=== PATIENT | female | born 1955 | race Caucasian/White ===

== ENCOUNTER → 2016-06-28 | Outpatient (CLI) | payer OTHER ==
--- NOTE | 2016-06-28 14:08 | OP ---
DATE OF PROCEDURE: 06/28/16 PREOPERATIVE DIAGNOSIS: 1. Abnormal mammogram with a mass at 12 oclock position, left breast. POSTOPERATIVE DIAGNOSIS: 1. Abnormal mammogram with a mass at 12 oclock position, left breast. PROCEDURE: 1. Sonographically guided needle core biopsy, left breast mass. SURGEON: Diego Wells MD. NANOTECHNOLOGY ENGINEERING TECHNICIAN: None. ANESTHESIA: Local infiltration of 1% lidocaine. INDICATION: The patient is a 60-year-old female who on mammography was found to have a solid mass at the 12 oclock position in the left breast just under 2 cm. She was brought to the ultrasound suite for sonographically guided biopsy. FINDINGS: Several good cores were taken with the ultrasound revealing the needle within the mass. PROCEDURE: The patient was brought to the ultrasound suite. The lesion was identified in the breast lateral to the mass and ultrasound probe were prepped with Betadine paint and draped. Local infiltration of anesthesia was obtained with 1% lidocaine in the area between skin stab wound and the mass were infiltrated with local anesthetic. At this point, the stab wound was made with a #15 blade and then the needle core biopsy device was advanced under ultrasound guidance in multiple passes for specimen. Hemostasis was obtained with pressure. Skin edges were approximated with a single suture of 4-0 Ethilon. Sterile pressure dressings were applied. The specimens were sent for pathological evaluation. The patient tolerated the procedure well. Estimated blood loss was nil. #[id number] [facility]
--- NOTE | 2016-06-29 20:00 | US ---
EXAM DESCRIPTION: US GUIDANCE FOR NEEDLE PLACEMENT CLINICAL HISTORY: 60 y/o ,F, INCONCLUSIVE MAMMOGRAM COMPARISON: Diagnostic evaluation. 03/28/2016 IMPRESSION: Several static ultrasound images are submitted. The images demonstrate the needle traversing the nodule of interest in the left breast at 12 o'clock. No sonographic complication. Pathology results are currently pending Electronically signed by: Carol Salter 06/29/2016 19:59
== END | disposition home or self-care (01) ==
LOC: US 07:48
PROVIDERS: ATTEND Surgery
PROC: 0HBU3ZX Excision of Left Breast, Percutaneous Approach, Diagnostic (ICD-10-PCS; principal; 2016-06-28)
DX: R92.8 Other abnormal and inconclusive findings on diagnostic imaging of breast (principal)

== ENCOUNTER 2016-07-03 14:25 | Emergency (ER) | payer OTHER ==
[2016-07-03 16:07] VITALS: BP 157/102; TEMP 99.6; O2SAT 97
[2016-07-03] MEDS ORDERED: predniSONE 20 MG TAB PO ONE (16:23)
--- NOTE | 2016-07-03 16:23 | ED.PDOC ---
History of Present Illness - General Chief Complaint: General Stated Complaint: nasal congestion, sore throat Time Seen by Provider: 07/03/16 14:47 Source: patient Exam Limitations: no limitations - History of Present Illness Initial Comments: The patient is a 60-year-old female presenting to the emergency room secondary to cough along with mild sore throat and runny nose for the last week. She has had some increased pressure in her years. No real shortness of breath. She has had some increase in her wheezing. She does have COPD and does still smoke. No definite fevers. No shortness of breath. No palpitations. No chest pain. No rash. Her relative lives with her has similar symptoms. Timing/Duration: 1 week Severity: mild Improving Factors: nothing Worsening Factors: nothing Associated Symptoms: cough, fever/chills, malaise Allergies/Adverse Reactions: Allergies Sulfamethoxazole w/Trimethoprim [From Bactrim] Allergy (Verified 07/03/16 16:02) Home Medications: Ambulatory Orders Lisinopril & Hydrochlorothiazi [Lisinopril/Hctz 20-12.5 mg] 1 tab PO QAM #30 tab 02/27/15 Metformin HCl [Glucophage] 500 mg PO BID 02/27/15 Albuterol Inhaler [Ventolin Hfa Inhaler] 2 puff INH Q4H PRN 07/03/16 Meloxicam [Mobic] 7.5 mg PO BID 07/03/16 Omeprazole 20 mg PO DAILY 07/03/16 QUEtiapine FUMARATE [SEROquel] 50 mg PO BEDTIME 07/03/16 Review of Systems - Review of Systems Constitutional: States: malaise EENTM: States: nose congestion, throat pain Respiratory: States: cough, wheezing Cardiology: States: no symptoms reported Gastrointestinal/Abdominal: States: no symptoms reported Genitourinary: States: no symptoms reported Musculoskeletal: States: no symptoms reported Skin: States: no symptoms reported Neurological: States: no symptoms reported Endocrine: States: no symptoms reported All other Systems: No Change from Baseline Past Medical History (General) - Patient Medical History Hx Stroke: No Hx of COPD: Yes Hx Cardiac Disorders: Yes Hx Congestive Heart Failure: Yes Hx Hypertension: Yes Hx Diabetes: Yes Hx Gastroesophageal Reflux: Yes Hx MRSA: No Surgical History: tonsillectomy - Vaccination History Hx Influenza Vaccination: No Hx Pneumococcal Vaccination: No - Social History Hx Tobacco Use: Yes Hx Depression: Yes Family Medical History - Family History Mother Family History: Unknown Living Status: Unknown Father Living Status: Hx Family Hypertension: Yes Hx Family Diabetes: Yes Physical Exam - Physical Exam General Appearance: Alert, Comfortable, No apparent distress Eye Exam: bilateral normal Ears, Nose, Throat: hearing grossly normal, nasal congestion, pharyngeal erythema Neck: non-tender, full range of motion, supple Respiratory: chest non-tender, no respiratory distress, no accessory muscle use , wheezing - mild and scattered Cardiovascular/Chest: normal peripheral pulses, regular rate, rhythm, no edema Peripheral Pulses: radial,right: 2+, radial,left: 2+ Gastrointestinal/Abdominal: normal bowel sounds, non tender, soft Rectal Exam: deferred Back Exam: normal inspection Extremity: normal range of motion, non-tender, normal inspection, no pedal edema , normal capillary refill Neurologic: alert, normal mood/affect, oriented x 3 Skin Exam: normal color Comments: Vital Signs - 24 hr 07/03/16 16:02 Temperature 99.6 F Pulse Rate [ 84 Left Radial] Respiratory 20 Rate Blood Pressure 157/102 [Left Arm] O2 Sat by Pulse 97 Oximetry Progress - Progress Progress: 07/03/16 16:24 the patient is a 60-year-old female with a viral respiratory tract infection. This has triggered a mild COPD exacerbation. She is receiving 1 dose of oral prednisone here today. She needs to stop smoking. She needs to continue her breathing treatments. Motrin and Tylenol can help reduce discomfort. She needs to keep well-hydrated. She can additionally take over- the-counter Zyrtec once daily for the runny nose if she desires. She needs to follow up with her primary care doctor before the weekend. she needs to return to the emergency room for any acute worsening. - Results/Orders Results/Orders: Rapid flu and rapid strep were negative. Departure - Departure Clinical Impression: Viral syndrome, COPD exacerbation Disposition: Discharge to Home or Self Care Condition: Fair Departure Forms: ED Discharge - Pt. Copy, Patient Portal Self Enrollment Instructions: DI for Viral Upper Respiratory Infection -- Adult, DI for Chronic Obstructive Pulmonary Disease Diet: regular diet Activity: increase activity as tolerated Referrals: Yesica Lizama NP [Primary Care Provider] - 1-2 Weeks Home Medications: Ambulatory Orders Lisinopril & Hydrochlorothiazi [Lisinopril/Hctz 20-12.5 mg] 1 tab PO QAM #30 tab 02/27/15 Metformin HCl [Glucophage] 500 mg PO BID 02/27/15 Albuterol Inhaler [Ventolin Hfa Inhaler] 2 puff INH Q4H PRN 07/03/16 Meloxicam [Mobic] 7.5 mg PO BID 07/03/16 Omeprazole 20 mg PO DAILY 07/03/16 QUEtiapine FUMARATE [SEROquel] 50 mg PO BEDTIME 07/03/16 Additional Instructions: the patient is a 60-year-old female with a viral respiratory tract infection. This has triggered a mild COPD exacerbation. She is receiving 1 dose of oral prednisone here today. She needs to stop smoking. She needs to continue her breathing treatments. Motrin and Tylenol can help reduce discomfort. She needs to keep well-hydrated. She can additionally take over- the-counter Zyrtec once daily for the runny nose if she desires. She needs to follow up with her primary care doctor before the weekend. she needs to return to the emergency room for any acute worsening.
== END 2016-07-03 16:54 | disposition home or self-care (01) ==
LOC: ER 14:25
DX: J44.1 Chronic obstructive pulmonary disease with (acute) exacerbation (principal); B34.9 Viral infection, unspecified; F17.200 Nicotine dependence, unspecified, uncomplicated; I11.0 Hypertensive heart disease with heart failure; I50.9 Heart failure, unspecified; K21.9 Gastro-esophageal reflux disease without esophagitis; E11.9 Type 2 diabetes mellitus without complications; Z79.899 Other long term (current) drug therapy; Z88.2 Allergy status to sulfonamides

== ENCOUNTER → 2016-12-25 | Outpatient (CLI) | payer OTHER ==
--- NOTE | 2016-12-26 09:13 | RAD ---
EXAM DESCRIPTION: Cervical Spine,3 Views CLINICAL HISTORY: 61 years, Female, DISC DEGENERATION COMPARISON: FINDINGS: Normal vertebral body height. Straightening. Moderate narrowing C5-6 with anterior posterior spurs. Slight narrowing C6-7 with similar spurring. IMPRESSION: Muscular spasm and mild cervical spondylosis particularly C5-6 and to lesser degree C6-7 Electronically signed by: Pablo Troncoso MD 12/26/2016 9:12 AM CDT
--- NOTE | 2016-12-26 09:14 | RAD ---
EXAM DESCRIPTION: Lumbar Spine 3 Views CLINICAL HISTORY: 61 years, Female, DISC DEGENERATION COMPARISON: FINDINGS: Normal vertebral body height. Moderate narrowing L4-5 with spurring. Other disc spaces fairly well maintained. Minimal mid right lumbar curvature probably degenerative. IMPRESSION: Mild degenerative disc disease at L4-5. No acute bony injury Electronically signed by: Pablo Troncoso MD 12/26/2016 9:13 AM CDT
== END | disposition home or self-care (01) ==
LOC: YCFC.O 12:44
PROVIDERS: ATTEND Nurse Practitioner Family
DX: E78.5 Hyperlipidemia, unspecified (principal); E11.9 Type 2 diabetes mellitus without complications; I10 Essential (primary) hypertension; Z13.9 Encounter for screening, unspecified; M50.30 Other cervical disc degeneration, unspecified cervical region; M51.36 Other intervertebral disc degeneration, lumbar region

== ENCOUNTER → 2017-01-01 | Outpatient (CLI) | payer OTHER | LOC: RESP 10:30 | PROVIDERS: ATTEND Nurse Practitioner Family | DX: R10.13 Epigastric pain (principal) ==

== ENCOUNTER 2018-01-18 21:17 | Emergency (ER) | payer OTHER ==
--- NOTE | 2018-01-18 21:47 | ED.PDOC ---
History of Present Illness - General Chief Complaint: Cardiovascular Problem Stated Complaint: bilateral lower extremity swelling Time Seen by Provider: 01/18/18 21:43 Source: patient Exam Limitations: no limitations - History of Present Illness Initial Comments: Patient presents with bipedal edema that has been increasing for a few days. She normally takes HCTZ for it but she ran out. She went to an urgent care today because she thought that her doctor was there but he wasn't. She is requesting a temporary refill until she can get to him this week. She has had the edema many times before. Denies chest pain or dyspnea. Does smoke cigarrettes. No other complaints. Timing/Duration: other - several days Severity: moderate Improving Factors: nothing, eating Associated Symptoms: denies symptoms Allergies/Adverse Reactions: Allergies Sulfamethoxazole w/Trimethoprim [From Bactrim] Allergy (Verified 07/03/16 16:02) Home Medications: Ambulatory Orders Lisinopril & Hydrochlorothiazi [Lisinopril/Hctz 20-12.5 mg] 1 tab PO QAM #30 tab 02/27/15 Metformin HCl [Glucophage] 500 mg PO BID 02/27/15 Albuterol Inhaler [Ventolin Hfa Inhaler] 2 puff INH Q4H PRN 07/03/16 Meloxicam [Mobic] 7.5 mg PO BID 07/03/16 Omeprazole 20 mg PO DAILY 07/03/16 QUEtiapine FUMARATE [SEROquel] 50 mg PO BEDTIME 07/03/16 Lisinopril & Hydrochlorothiazi [Lisinopril/Hctz 20-12.5 mg] 1 tab PO QAM #7 tab 01/18/18 Metformin HCl 500 mg PO BID #14 tab 01/18/18 Review of Systems - Review of Systems Constitutional: States: no symptoms reported EENTM: States: no symptoms reported Respiratory: States: no symptoms reported Cardiology: States: edema Gastrointestinal/Abdominal: States: no symptoms reported Genitourinary: States: no symptoms reported Musculoskeletal: States: no symptoms reported Skin: States: no symptoms reported Neurological: States: no symptoms reported Endocrine: States: no symptoms reported Hematologic/Lymphatic: States: no symptoms reported Past Medical History (General) - Patient Medical History Hx Stroke: No Hx of COPD: Yes Hx Cardiac Disorders: Yes Hx Congestive Heart Failure: Yes Hx Hypertension: Yes Hx Diabetes: Yes Hx Gastroesophageal Reflux: Yes Hx MRSA: No - Vaccination History Hx Influenza Vaccination: No Hx Pneumococcal Vaccination: No - Social History Hx Tobacco Use: Yes Hx Depression: Yes Family Medical History - Family History Mother Family History: Unknown Living Status: Unknown Father Living Status: Hx Family Hypertension: Yes Hx Family Diabetes: Yes Physical Exam - Physical Exam General Appearance: Alert Respiratory: lungs clear, normal breath sounds, no respiratory distress Cardiovascular/Chest: normal peripheral pulses, regular rate, rhythm, other - 2 + non-pitting bipedal edema to mid tibia Gastrointestinal/Abdominal: normal bowel sounds, non tender, soft Departure - Departure Clinical Impression: Edema, Tobacco abuse counseling Disposition: Discharge to Home or Self Care Condition: Good Departure Forms: ED Discharge - Pt. Copy, Patient Portal Self Enrollment Diet: other - as instructed by your physician Activity: increase activity as tolerated Referrals: ALFREDO YEN [Primary Care Provider] - 1-2 Weeks Prescriptions: Lisinopril & Hydrochlorothiazi [Lisinopril/Hctz 20-12.5 mg] 1 tab PO QAM #7 tab Metformin HCl 500 mg PO BID #14 tab Home Medications: Ambulatory Orders Lisinopril & Hydrochlorothiazi [Lisinopril/Hctz 20-12.5 mg] 1 tab PO QAM #30 tab 02/27/15 Metformin HCl [Glucophage] 500 mg PO BID 02/27/15 Albuterol Inhaler [Ventolin Hfa Inhaler] 2 puff INH Q4H PRN 07/03/16 Meloxicam [Mobic] 7.5 mg PO BID 07/03/16 Omeprazole 20 mg PO DAILY 07/03/16 QUEtiapine FUMARATE [SEROquel] 50 mg PO BEDTIME 07/03/16 Lisinopril & Hydrochlorothiazi [Lisinopril/Hctz 20-12.5 mg] 1 tab PO QAM #7 tab 01/18/18 Metformin HCl 500 mg PO BID #14 tab 01/18/18 Additional Instructions: Take medications as prescribed. Read the literature on smoking cessation and determine how you are going to quit. Return to the E.R. for chest pain or shortness of breath. See your regular doctor this week.
[2018-01-18 21:50] VITALS: BP 161/109; TEMP 99.7; O2SAT 99
[2018-01-18] MEDS ORDERED: metFORMIN HCL 500 MG TAB ONE (22:04)
[2018-01-19] MEDS ORDERED: metFORMIN HCL 500 MG TAB PO ONE (21:58)
== END 2018-01-18 22:19 | disposition home or self-care (01) ==
LOC: ER 21:17
DX: R60.0 Localized edema (principal); F17.210 Nicotine dependence, cigarettes, uncomplicated; J44.9 Chronic obstructive pulmonary disease, unspecified; I50.9 Heart failure, unspecified; I11.0 Hypertensive heart disease with heart failure; E11.9 Type 2 diabetes mellitus without complications; K21.9 Gastro-esophageal reflux disease without esophagitis; F32.9 Major depressive disorder, single episode, unspecified; Z79.899 Other long term (current) drug therapy; Z79.84 Long term (current) use of oral hypoglycemic drugs; Z88.2 Allergy status to sulfonamides